=== PATIENT | female | born 1935 | race Caucasian/White ===

== ENCOUNTER 2017-05-13 13:28 | Observation (INO) | payer OTHER ==
[~2017-05-13] VITALS: Ht 160 cm; Wt 65.3 kg
[~2017-05-13 13:28] MED LIST: ADVIL200 MG PO; ASPIR-LOW81 MG PO; ASPIRIN81 M2 PO; ATIVAN0.5 MG PO; CARDIZEM CD,CA180 MG PO; FLUCONAZOLE100 MG PO; FLUOXETINE HCL10 MG PO; METOPROLOL SUCC25 MG PO; PANTOPRAZOLE SO40 MG PO; PRAVASTATIN SOD40 MG PO; REMERON15 M2 PO; TOPROL XL25 MG PO; ZOLOFT25 MG PO
[2017-05-13 15:17] LABS: BASOPHIL COUNT 0.1 K/uL (0-0.1); EOSINOPHIL (%) 3.7 % (0-5); EOSINOPHIL COUNT 0.3 K/uL (0-0.3); HEMATOCRIT 42.5 % (36.0-46.0); IMMATURE GRANULOCYTE (%) 0.1 % (0.0-0.7); INSTRUMENT ABS NEUTROPHIL CT 4.4 K/uL; LYMPHOCYTE COUNT 3.6 K/uL (1.0-2.8); MCH 30.6 PG (29.0-34.0); MCHC 32.5 G/DL (30.0-36.0); MCV 94.2 FL (83-99); MEAN PLAT.VOLUME 10.1 uM^3 (9.5-12.4); MONOCYTE (%) 7.1 % (3-12); MONOCYTE COUNT 0.6 K/uL (0-0.8); NEUTROPHIL (%) 48.2 % (45-76); NEUTROPHIL COUNT 4.4 K/uL (1.8-6.4); PLATELET COUNT 264 K/uL (156-360); RBC DIS.WIDTH-CV 13.1 % (11.8-14.6); RBC DIS.WIDTH-SD 44.9 % (39-53); RED BLOOD COUNT 4.51 M/uL (3.80-5.20)
[2017-05-13 15:26] LABS: CHLORIDE 103 mEq/L (99-109); POTASSIUM 3.5 mEq/L (3.7-5.4); SODIUM 140 mEq/L (136-147)
[2017-05-13 15:28] LABS: GLUCOSE 107 mg/dL (70-99)
[2017-05-13 15:30] LABS: ANION GAP 12 MEQ/L (2-14)
[2017-05-13 15:32] LABS: GFR ESTIMATE (CALCULATED) 57 mL/min/
[2017-05-13 15:33] LABS: UREA NITROGEN (BUN) 21 mg/dL (9-23)
[2017-05-13 15:37] LABS: TROP-I INTERPRETATION NEGATIVE; TROPONIN-I 0.01 ng/mL (0.0-0.30)
[2017-05-13] MEDS ORDERED: SIMVASTATIN20 MG PO (16:40)
[2017-05-13] MEDS ORDERED: AMITRIPTYLINE H25 MG PO (16:42)
[2017-05-13] MEDS ORDERED: VENLAFAXINE HCL75 MG PO (16:43)
[2017-05-13] MEDS ORDERED: LEVOTHYROXINE88 MCG PO (16:44)
[2017-05-13] MEDS ORDERED: METOPROLOL SUCC25 MG PO (16:45)
[2017-05-13 18:18] VITALS: BP 152/84
[2017-05-13 18:24] VITALS: BP 175/84
[2017-05-13 21:44] LABS: TROP-I INTERPRETATION NEGATIVE; TROPONIN-I 0.02 ng/mL (0.0-0.30)
[2017-05-13 23:29] VITALS: BP 119/65
[2017-05-14 03:20] VITALS: BP 128/62
[2017-05-14 04:23] LABS: TROP-I INTERPRETATION NEGATIVE; TROPONIN-I < 0.01 ng/mL (0.0-0.30)
[2017-05-14 08:31] VITALS: BP 116/65
== END 2017-05-14 16:39 | disposition home or self-care (01) ==
LOC: EME 13:28 → EDOF 16:13 → 5WEST 16:13 → EDOF 16:13 → ENRESERV 16:29 → 5WEST 17:52
PROVIDERS: Internal Medicine; Physician Assistant
DX: R07.9 Chest pain, unspecified (principal); I25.10 Atherosclerotic heart disease of native coronary artery without angina pectoris; Z91.19 Patient's noncompliance with other medical treatment and regimen; R13.10 Dysphagia, unspecified; I25.2 Old myocardial infarction; Z95.1 Presence of aortocoronary bypass graft; E87.6 Hypokalemia; R20.0 Anesthesia of skin; I10 Essential (primary) hypertension; F32.9 Major depressive disorder, single episode, unspecified; E78.5 Hyperlipidemia, unspecified; R42 Dizziness and giddiness; Z80.6 Family history of leukemia
CPT/HCPCS: 71020; 80048; 84484; 85025; 93005; 99281; 99285; G0378; J1650

== ENCOUNTER 2017-08-27 12:31 | Emergency (ER) | payer OTHER ==
[~2017-08-27] VITALS: Ht 160 cm; Wt 65.7 kg
[~2017-08-27 12:31] MED LIST changes: +AMITRIPTYLINE H25 MG PO; +LEVOTHYROXINE88 MCG PO; +SIMVASTATIN20 MG PO; +VENLAFAXINE HCL75 MG PO
[2017-08-27 13:24] LABS: APPEARANCE CLEAR ((CLEAR)); BILIRUBIN NEGATIVE; BLOOD NEGATIVE; COLOR YELLOW ((YELLOW)); GLUCOSE (STRIP) NEGATIVE; KETONES NEGATIVE; LEUKOCYTES TRACE; NITRITE NEGATIVE; PROTEIN (STRIP) 30
[2017-08-27 13:32] LABS: BACTERIA RARE /HPF; EPITHELIAL CELLS RARE /HPF; MUCUS TRACE /LPF; RED BLOOD CELLS 0-5 /HPF (0-5)
[2017-08-27] MEDS ORDERED: BACTRIM,SEPT1 TABLET PO (13:42)
[2017-08-27 14:09] VITALS: BP 167/96
== END 2017-08-27 14:12 | disposition home or self-care (01) ==
LOC: EME 12:31
DX: N39.0 Urinary tract infection, site not specified (principal); J06.9 Acute upper respiratory infection, unspecified; I10 Essential (primary) hypertension; I25.2 Old myocardial infarction; F41.9 Anxiety disorder, unspecified; F32.9 Major depressive disorder, single episode, unspecified; Z95.1 Presence of aortocoronary bypass graft
CPT/HCPCS: 81003; 87502; 99281; 99284